=== PATIENT | female | born 1955 | race Caucasian/White ===

== ENCOUNTER 2019-09-03 07:12 | Day surgery (SDC) | payer BC, OTHER ==
[2019-09-03] MEDS ORDERED: Propofol 200 MG/20 ML SDV IV ONE (07:13)
[2019-09-03] MEDS ORDERED: Sodium Chloride 0.9% 10 ML Syringe FLUSH PRN (07:15)
[2019-09-03] MEDS ORDERED: Lactated Ringers 1,000 ML IV SCH (07:15)
[2019-09-03 08:06] VITALS: PULSE 63
--- NOTE | 2019-09-03 08:54 | PCM.OPNOTE ---
- General Post-Op/Procedure Note Date of Surgery/Procedure: 09/03/19 Operative Procedure(s): c scope with bx Findings: cecal polyp x2 Pre Op Diagnosis: hx of colon polyp Post-Op Diagnosis: cecal polyp x2 Anesthesia Technique: MAC Primary Surgeon: Joe Villatoro Anesthesia Provider: Salomon Hahn Pathology: cecal polyp x2 Complications: None Condition: Good Free Text/Narrative:: see dictation
[2019-09-03 12:55] VITALS: BP 97/77
--- NOTE | 2019-09-03 15:26 | OR ---
DATE OF OPERATION: 09/03/2019 SURGEON: Joe Villatoro MD PROCEDURE PERFORMED: Colonoscopy with cold forceps biopsy. PREOPERATIVE DIAGNOSIS: Personal history of colon polyps. POSTOPERATIVE DIAGNOSIS: Polyp x2 of the ascending colon. INDICATIONS FOR PROCEDURE: This is a 63-year-old white female who presents for her 5-year followup colonoscopy. She was offered and accepted same. DESCRIPTION OF OPERATION: After an excellent IV sedation was administered, digital rectal exam was performed. No marked abnormality was noted. The flexible colonoscope was inserted and advanced to the cecum. Prep was excellent. The following findings were noted. In the cecum, there were two 3 mm polyps biopsied with cold biopsy forceps and sent for permanent. Transverse colon was unremarkable. Descending colon was unremarkable. Sigmoid and rectum were unremarkable. The colon was deflated. The patient tolerated the procedure well was taken to recovery in good condition. /[id number] KELLIE/LINDA
== END 2019-09-03 09:29 | disposition home or self-care (01) ==
LOC: FB.SDS 07:12
PROVIDERS: ATTEND Surgery
DX: Z12.11 Encounter for screening for malignant neoplasm of colon (principal); D12.2 Benign neoplasm of ascending colon; E78.2 Mixed hyperlipidemia; Z86.010 Personal history of colon polyps; Z79.82 Long term (current) use of aspirin; Z88.2 Allergy status to sulfonamides; Z88.1 Allergy status to other antibiotic agents
CPT/HCPCS: 45380; 88305; J2704; J7120

== ENCOUNTER 2024-08-22 06:53 | Day surgery (SDC) | payer MEDICARE, BC ==
[2024-08-22] MEDS ORDERED: Lidocaine 2% 100 MG/5 ML Syringe IVPUSH ONE (06:54)
[2024-08-22] MEDS ORDERED: Propofol 200 MG/20 ML SDV IV ONE (06:54)
[2024-08-22] MEDS ORDERED: Sodium Chloride 0.9% 10 ML Syringe FLUSH PRN (07:00)
[2024-08-22 07:44] VITALS: BP 130/76; PULSE 64
[2024-08-22] MEDS: Lactated Ringers 1,000 ML IV SCH (07:50)
[2024-08-22] MEDS: Simethicone Drops 40 MG/0.6 ML 30 ML Bottle ONE (08:30)
[2024-08-22 09:59] LABS: CREATININE 0.8 mg/dL (0.55-1.02); EST CRCL DRUG DOSING (CG) 56.45 mL/min
[2024-08-22] MEDS: Iopamidol 755 Mg/ML 100 ML Bottle IV SCH (11:02)
[2024-08-22] MEDS: Diatrizoate Meglumine/Diatrizoate Sodium 37% 30 ML Bottle PO ONE (11:09)
== END 2024-08-22 11:20 | disposition home or self-care (01) ==
LOC: FB.SDS 06:53
PROVIDERS: ATTEND Surgery
DX: Z12.11 Encounter for screening for malignant neoplasm of colon (principal); K57.30 Diverticulosis of large intestine without perforation or abscess without bleeding; K64.1 Second degree hemorrhoids; Z86.0100 Personal history of colon polyps, unspecified; Z80.0 Family history of malignant neoplasm of digestive organs; Z88.1 Allergy status to other antibiotic agents; Z88.2 Allergy status to sulfonamides
CPT/HCPCS: 00811; 36415; 45380; 45385; 74177; 82565; 88305; A9270; J2704; J7120; Q9963; Q9967